=== PATIENT | female | born 1970 | race Caucasian/White ===

== ENCOUNTER 2017-01-19 03:33 | Emergency (ER) | payer SELFPAY ==
[~2017-01-19] VITALS: Ht 165.1 cm; Wt 72.6 kg
--- NOTE | 2017-01-19 03:50 | NUR ---
PT BIB SELF AMBULATORY TO ER BED 8, C/O ABD PAIN X 1 MONTH. PT PLACED IN GOWN AND SPEECH ASSISTANT. VSS/RESP EVEN UNLABORED/NAD NOTED/SKIN WARM AND DRY/DENIES N-V-D/AOX4. MD AT BEDSIDE FOR EVAL.
[2017-01-19] MEDS ORDERED: METOCLOPRAMIDE HCL 10 MG/2 ML VIAL ONE (03:56)
[2017-01-19] MEDS ORDERED: FAMOTIDINE/PF INJ 20 MG/2 ML VIAL IV ONE ×2 (03:56→04:00)
[2017-01-19] MEDS ORDERED: METOCLOPRAMIDE HCL 10 MG/2 ML VIAL IV ONE (04:00)
--- NOTE | 2017-01-19 04:11 | NUR ---
18G IV TO R AC USING ASEPTIC TECH, BLOOD HANDED OVER TO LAB AT BEDSIDE. IV FLUSHES EASILY WITH NS, NO S/S INFILTRATION.
[2017-01-19 04:21] LABS: BASOPHILS # (AUTO) 0.1 /CMM (0.0-0.2); BASOPHILS % (AUTO) 0.8 % (0.0-2.0); EOSINOPHILS # (AUTO) 0.1 /CMM (0.0-0.7); EOSINOPHILS % (AUTO) 1.4 % (0.0-6.0); HEMATOCRIT 44 % (33-45); HEMOGLOBIN 14.6 g/dL (11.5-14.8); LYMPHOCYTES # (AUTO) 2.6 /CMM (0.8-4.8); MEAN CORPUSCULAR HEMOGLOBIN 31 PG (26.0-33.0); MEAN CORPUSCULAR HGB CONC 33 g/dl (31.0-36.0); MEAN CORPUSCULAR VOLUME 93 fL (82-100); MONOCYTES # (AUTO) 0.6 /CMM (0.1-1.30); MONOCYTES % (AUTO) 6.2 % (2.0-12.0); NEUTROPHILS # (AUTO) 6.9 /CMM (1.8-8.9); NEUTROPHILS % (AUTO) 66.6 % (43.0-81.0); PLATELET COUNT (AUTO) 324 /CMM (150-450); RDW COEFFICIENT OF VARIATION 12.4 (11.5-15.0); RED BLOOD CELL COUNT(AUTO) 4.72 MIL/uL (4.0-5.2); WHITE BLOOD COUNT (AUTO) 10.4 K/uL (4.3-11.0)
[2017-01-19 04:22] LABS: APPEARANCE,URINE CLEAR (CLEAR); BILIRUBIN,URINE NEGATIVE (NEGATIVE); BLOOD, URINE TRACE-INTA Ery/uL (NEGATIVE); COLOR,URINE YELLOW (YELLOW); KETONES,URINE NEGATIVE (NEGATIVE); LEUKOCYTE ESTERASE ,URINE NEGATIVE (NEGATIVE); NITRITE, URINE NEGATIVE (NEGATIVE); PROTEIN,URINE NEGATIVE (NEGATIVE); UGLUCOSE NEGATIVE (NEGATIVE); UROBILINOGEN,URINE 0.2 EU/dL (0.2)
[2017-01-19 04:28] LABS: BACTERIA,URINE None seen /HPF (None Seen); RBC,URINE 0-2 /HPF (0-2); SQUAMOUS EPITHELIAL CELL,UR Few /HPF (None Seen); WBC,URINE 0-2 /HPF (0-3)
[2017-01-19 04:32] LABS: CALCIUM, SERUM 9.6 mg/dL (8.5-10.1); CREATININE 0.9 mg/dL (0.6-1.3); POTASSIUM 3.4 mmol/L (3.5-5.1)
[2017-01-19 04:38] LABS: ALBUMIN 4.2 g/dL (3.4-5.0); BILIRUBIN,TOTAL 0.2 mg/dL (0.2-1.0); TOTAL PROTEIN, SERUM 7.8 g/dL (6.4-8.2)
--- NOTE | 2017-01-19 04:38 | NUR ---
PT TO CT VIA STRETCHER, VSS.
[2017-01-19 04:43] LABS: INR 0.87 (0.87-1.13)
--- NOTE | 2017-01-19 04:49 | NUR ---
PT BACK FROM CT.
--- NOTE | 2017-01-19 05:15 | NUR ---
AT BEDSIDE SPEAKING WITH PT.
[2017-01-19] MEDS ORDERED: CAPTOPRIL 12.5 MG TABLET ONE (05:23)
[2017-01-19] MEDS: LISINOPRIL (10MG) 10 MG TABLET PO SCH ×2 (05:29→06:05)
[2017-01-19] MEDS ORDERED: CAPTOPRIL 12.5 MG TABLET PO ONE (06:00)
--- NOTE | 2017-01-19 06:06 | NUR ---
IV removed. Catheter intact and site benign. Pressure and 4x4 applied to site. No bleeding noted. Patient discharged to home in stable condition. Written and verbal after care instructions given. Patient verbalizes understanding of instruction. Pt ambulatory with a steady gait.
[2017-01-19 06:11] VITALS: BP 145/88
== END 2017-01-19 06:12 | disposition home or self-care (01) ==
LOC: ER 03:37
DX: K80.20 Calculus of gallbladder without cholecystitis without obstruction (principal); I10 Essential (primary) hypertension; E78.00 Pure hypercholesterolemia, unspecified; Z91.19 Patient's noncompliance with other medical treatment and regimen
CPT/HCPCS: 36415; 74176; 80048; 80076; 81001; 83690; 85025; 85730; 96374; 96375; 99285; A4606; J2765; J3490; Z7610; 81000-TC

== ENCOUNTER 2021-11-17 21:07 | Emergency (ER) | payer BC ==
[~2021-11-17] VITALS: Ht 165.1 cm; Wt 72.1 kg
--- NOTE | 2021-11-17 21:40 | NUR ---
BIBSELF C/O CUTTING RIGHT HAND 4TH FINGER APPROX 1CM WITH WINE DIRECTOR METABOLISM LAST NIGHT. PATIENT IS AFEBRILE. AAOX4. PLACED IN BED. VITALS CHECKED.
--- NOTE | 2021-11-17 21:45 | NUR ---
SEEN BY DR MONSON AT BEDSIDE
[2021-11-17] MEDS ORDERED: CEPHALEXIN MONOHYDRATE 500 MG CAPSULE PO ONE ×2 (22:00→22:02)
[2021-11-17] MEDS ORDERED: TDAP [DIPH/PERTUSSIS/TET] 0.5 ML VIAL IM ONE ×2 (22:00→22:03)
[2021-11-17] MEDS ORDERED: SULFAMETH/TRIMETH 800/160 MG 1 UDTAB TABLET PO ONE (22:00)
[2021-11-17] MEDS ORDERED: CEPH500C2 PO ×2 (22:02→22:23)
[2021-11-17] MEDS ORDERED: SULFAMETH/TRIMETH 800/160 MG 1 UDTAB TABLET ONE (22:02)
[2021-11-17] MEDS ORDERED: SULF1TAB48 PO ×2 (22:02→22:23)
--- NOTE | 2021-11-17 23:12 | NUR ---
Patient discharged to home in stable condition. Written and verbal after care instructions given. Patient verbalizes understanding of instruction.
[2021-11-17 23:15] VITALS: BP 138/74
== END 2021-11-17 23:15 | disposition home or self-care (01) ==
LOC: ER 21:12
DX: S61.234A Puncture wound without foreign body of right ring finger without damage to nail, initial encounter (principal); L03.011 Cellulitis of right finger; I10 Essential (primary) hypertension; E78.00 Pure hypercholesterolemia, unspecified; Z60.2 Problems related to living alone; W22.8XXA Striking against or struck by other objects, initial encounter; Y93.89 Activity, other specified; Y92.89 Other specified places as the place of occurrence of the external cause; Y99.8 Other external cause status
CPT/HCPCS: 90715

== ENCOUNTER 2021-12-06 20:05 | Emergency (ER) | payer BC ==
[~2021-12-06] VITALS: Ht 165.1 cm; Wt 74.8 kg
[~2021-12-06 20:05] MED LIST: CEPH500C2 PO; SULF1TAB48 PO
[2021-12-06] MEDS ORDERED: PRED50TA PO (22:03)
[2021-12-06] MEDS ORDERED: CYCL10TA9 PO (22:03)
--- NOTE | 2021-12-06 22:56 | NUR ---
WAIVER SIGNED BY PT AND PLACED IN CHART
--- NOTE | 2021-12-06 23:02 | NUR ---
XRAY AT BEDSIDE
[2021-12-07] VITALS: BP 134/70
--- NOTE | 2021-12-07 01:06 | NUR ---
Patient discharged to home in stable condition. Written and verbal after care instructions given. Patient verbalizes understanding of instruction.
== END 2021-12-07 01:08 | disposition home or self-care (01) ==
LOC: ER 20:06
DX: M54.41 Lumbago with sciatica, right side (principal); I10 Essential (primary) hypertension; E78.00 Pure hypercholesterolemia, unspecified; Z60.2 Problems related to living alone; Z79.899 Other long term (current) drug therapy
CPT/HCPCS: 72110-TC

== ENCOUNTER 2023-03-11 21:37 | Emergency (ER) | payer BC ==
[~2023-03-11] VITALS: Ht 167.6 cm; Wt 83.0 kg
[~2023-03-11 21:37] MED LIST changes: +CYCL10TA9 PO; +PRED50TA PO
[2023-03-11 22:24] VITALS: TEMP 98.3
[2023-03-11] MEDS ORDERED: KETOROLAC TROMETHAMINE INJ 30 MG/ML VIAL ONE (22:40)
[2023-03-11] MEDS ORDERED: NITROGLYCERIN 0.4 MG/TAB BOTTLE ONE (22:40)
[2023-03-11] MEDS ORDERED: ASPIRIN 325 MG TABLET ONE (22:41)
[2023-03-11] MEDS: NITROGLYCERIN 0.4 MG/TAB BOTTLE SL ONE (22:48)
[2023-03-11] MEDS: KETOROLAC TROMETHAMINE INJ 30 MG/ML VIAL IV ONE (22:48)
[2023-03-11] MEDS: ASPIRIN 325 MG TABLET PO ONE (22:48)
[2023-03-11 22:51] LABS: BASOPHILS # (AUTO) 0.1 K/uL (0.0-0.2); BASOPHILS % (AUTO) 0.7 % (0.0-2.0); EOSINOPHILS # (AUTO) 0.1 K/uL (0.0-0.7); EOSINOPHILS % (AUTO) 1.2 % (0.0-6.0); HEMATOCRIT 43 % (33-45); HEMOGLOBIN 14.4 g/dL (11.5-14.8); LYMPHOCYTES % (AUTO) 38.5 % (20.0-44.0); MEAN CORPUSCULAR HEMOGLOBIN 31 PG (26.0-33.0); MEAN CORPUSCULAR HGB CONC 33 g/dl (31.0-36.0); MEAN CORPUSCULAR VOLUME 93 fL (82-100); MONOCYTES # (AUTO) 0.5 K/uL (0.1-1.30); MONOCYTES % (AUTO) 6.4 % (2.0-12.0); NEUTROPHILS # (AUTO) 4.1 K/uL (1.8-8.9); NEUTROPHILS % (AUTO) 53.2 % (43.0-81.0); PLATELET COUNT (AUTO) 349 K/uL (150-450); RED BLOOD CELL COUNT(AUTO) 4.63 MIL/uL (4.0-5.2); RED CELL DISTRIBUTION WIDTH 12.7 % (11.5-15.0); WHITE BLOOD COUNT (AUTO) 7.7 K/uL (4.3-11.0)
[2023-03-11 23:03] LABS: CALCIUM, SERUM 9.6 mg/dL (8.5-10.1); CARBON DIOXIDE 30 mmol/L (21-32); CHLORIDE 101 mmol/L (98-107); CREATININE 0.8 mg/dL (0.6-1.3); GLUCOSE 116 mg/dL (74-106); POTASSIUM 3.5 mmol/L (3.5-5.1); SODIUM SERUM 137 mmol/L (136-145); UREA NITROGEN, BLOOD 13 mg/dL (7-18)
[2023-03-11 23:04] LABS: INR 0.92 (0.91-1.10); PARTIAL THROMBOPLASTIN TIME 33.8 SEC (24.3-34.3); PROTHROMBIN TIME 9.8 SECS (9.2-11.1)
[2023-03-11 23:09] LABS: ALANINE AMINOTRANSFERASE 54 U/L (12-78); ALBUMIN 4.3 g/dL (3.4-5.0); ALKALINE PHOSPHATASE 130 U/L (46-116); ASPARTATE AMINOTRANSFERASE 24 U/L (15-37); BILIRUBIN,DIRECT 0.1 mg/dL (0.0-0.2); BILIRUBIN,TOTAL 0.2 mg/dL (0.2-1.0); TOTAL PROTEIN, SERUM 8.2 g/dL (6.4-8.2)
[2023-03-12 03:22] VITALS: BP 113/86; O2SAT 97
== END 2023-03-12 03:23 | disposition home or self-care (01) ==
LOC: ER 21:40
DX: R07.9 Chest pain, unspecified (principal); M62.838 Other muscle spasm; M54.12 Radiculopathy, cervical region; I10 Essential (primary) hypertension; E78.00 Pure hypercholesterolemia, unspecified; E11.9 Type 2 diabetes mellitus without complications; Z60.2 Problems related to living alone
CPT/HCPCS: 99285; 96374; 71045; 93005; 85025; 80048; 80076; 36415 ×2; 84484 ×2; 85730; J1885